=== PATIENT | female | born 1970 | race Caucasian/White ===

== ENCOUNTER 2022-06-01 07:45 | Day surgery (SDC) | payer OTHER ==
[2022-05-30 09:13] VITALS: BMI 24.7
[2022-06-01] MEDS ORDERED: BUPIVACAINE HCL/PF 2.5 MG/ML - 30 ML VIAL IJ ONE ×2 (08:12→09:48)
[2022-06-01] MEDS ORDERED: MIDAZOLAM HCL 2 MG/2 ML SINGLE DOSE VIAL ONE (09:13)
[2022-06-01] MEDS ORDERED: PROPOFOL 40 ML ONE (09:13)
[2022-06-01] MEDS ORDERED: DEXAMETHASONE SOD PHOSPHATE 4 MG/1 ML VIAL ONE ×2 (09:36→10:05)
[2022-06-01] MEDS ORDERED: ceFAZolin SODIUM 1 GM VIAL ONE (09:36)
[2022-06-01] MEDS ORDERED: ONDANSETRON 4 MG/2 ML VIAL ONE ×2 (09:36→10:05)
[2022-06-01] MEDS ORDERED: KETOROLAC TROMETHAMINE 30 MG/1 ML VIAL ONE (10:24)
[2022-06-01] MEDS ORDERED: ONDANSETRON 4 MG/2 ML VIAL IVPUSH PRN (10:26)
[2022-06-01] MEDS ORDERED: oxyCODONE HCL 5 MG TABLET PO PRN (10:26)
[2022-06-01] MEDS ORDERED: ACETAMINOPHEN 500 MG TABLET (FP) PO ONE (10:27)
[2022-06-01] MEDS ORDERED: KETOROLAC TROMETHAMINE 30 MG/1 ML VIAL IVPUSH ONE (10:27)
[2022-06-01] MEDS ORDERED: LACTATED RINGERS SOLUTION 1,000 ML IV SCH (10:30)
[2022-06-01] MEDS ORDERED: ACETAMINOPHEN INJECTION 100 ML IVPB ONE (10:34)
[2022-06-01 11:20] VITALS: RESP 16; TEMP 97.6
[2022-06-01 11:57] VITALS: BP 138/81; PULSE 78
== END 2022-06-01 12:02 | disposition home or self-care (01) ==
LOC: FASU 07:45
PROVIDERS: ATTEND Orthopaedic Surgery
PROC: 0SBC4ZZ Excision of Right Knee Joint, Percutaneous Endoscopic Approach (ICD-10-PCS; principal; 2022-06-01 09:49)
DX: S83.241A Other tear of medial meniscus, current injury, right knee, initial encounter (principal)
CPT/HCPCS: 94760